=== PATIENT | male | born 1970 | race Caucasian/White ===

== ENCOUNTER 2018-04-17 21:19 | Emergency (ER) | payer BC, MEDICAID ==
[~2018-04-17] VITALS: Ht 182.9 cm; Wt 83.9 kg
[2018-04-17 22:30] LABS: APPEARANCE,URINE CLEAR (CLEAR); BILIRUBIN,URINE NEGATIVE (NEGATIVE); BLOOD, URINE NEGATIVE Ery/uL (NEGATIVE); COLOR,URINE YELLOW (YELLOW); KETONES,URINE NEGATIVE (NEGATIVE); LEUKOCYTE ESTERASE ,URINE NEGATIVE (NEGATIVE); NITRITE, URINE NEGATIVE (NEGATIVE); PH,URINE 6.5 (5.0-8.0); PROTEIN,URINE NEGATIVE (NEGATIVE); UGLUCOSE NEGATIVE (NEGATIVE); UROBILINOGEN,URINE 0.2 EU/dL (0.2)
[2018-04-17] MEDS ORDERED: HYDROCODONE/APAP 5/325MG 1 EACH TABLET PO ONE (22:30)
[2018-04-17] MEDS ORDERED: KETOROLAC TROMETHAMINE INJ 30 MG/ML VIAL IM ONE (22:30)
--- NOTE | 2018-04-17 22:30 | NUR ---
PT CAME TO ER COMPLAINING OF L LOWER BACK PAIN, 01/05 THAT STARTED AT 1900. PT HAS A HX OF KIDNEY STONES AND STATES THAT HE, "FEELS LIKE ITS A KIDNEY STONE." PT AAXO4, NAD NOTED. RESPIRATIONS EVEN AND UNLABORED. PT WAITING EVAL FROM ER .
[2018-04-17] MEDS ORDERED: HYDROCODONE/APAP 5/325MG 1 EACH TABLET ONE (22:44)
[2018-04-17] MEDS ORDERED: KETOROLAC TROMETHAMINE 15 MG/ML VIAL ONE (22:44)
--- NOTE | 2018-04-17 22:55 | NUR ---
PT TAKEN TO CT.
--- NOTE | 2018-04-17 23:05 | NUR ---
PT BACK FROM CT.
--- NOTE | 2018-04-17 23:30 | NUR ---
Patient is resting comfortably in bed with eyes closed. Easily aroused. VSS. NAD NOTED. CALL LIGHT WITHIN REACH.
--- NOTE | 2018-04-18 01:13 | NUR ---
Patient discharged to home in stable condition. Written and verbal after care instructions given. Patient verbalizes understanding of instruction. PT AMBULATORY WITH STEADY GAIT. PT INSTRUCTED NOT TO DRIVE.
[2018-04-18 01:16] VITALS: BP 130/85
== END 2018-04-18 01:18 | disposition home or self-care (01) ==
LOC: ER 21:25
DX: M54.5 Low back pain (principal); N28.1 Cyst of kidney, acquired; Z88.2 Allergy status to sulfonamides; Z88.1 Allergy status to other antibiotic agents
CPT/HCPCS: 81000-TC; J1885